=== PATIENT | female | born 1960 | race Two or more races ===

== ENCOUNTER 2021-12-15 00:03 | Inpatient (IN) | payer OTHER ==
[~2021-12-15] VITALS: Ht 165.1 cm; Wt 54.4 kg
[2021-12-15] MEDS ORDERED: OMEPRAZOLE MAGN20 MG (00:17)
[2021-12-15] MEDS ORDERED: ATORVASTATIN CA10 MG (00:17)
[2021-12-15] MEDS ORDERED: LANTUS SOL100 UNIT/1 (00:17)
[2021-12-15] MEDS ORDERED: CARVEDILOL3.125 M1 (00:17)
[2021-12-15] MEDS ORDERED: COZAAR25 MG (00:18)
[2021-12-15] MEDS ORDERED: ECOTRIN81 MG (00:18)
[2021-12-15] MEDS ORDERED: ROCALTROL0.25 MCG (00:18)
[2021-12-15] MEDS ORDERED: [UNRECOGNIZED DRUG - OTHER] (00:18)
--- NOTE | 2021-12-15 00:20 | NUR ---
PTE ALERTA Y ORIENTADA X 3 ESFERAS EN COMPANIA DE FAMILIAR,RECIBIDA EN SILLON DE KARINE REFIERE DOLOR ABDOMINAL,NAUSEAS Y DIBILIDAD DESDE EL J[place] DE COMER TYLER PELAEZ,REFIERE HACE 7 ANOS NO COMIA TYLER RODRIGUEZ.
--- NOTE | 2021-12-15 01:22 | NUR ---
SE EDCUA A PTE SOBRE TX MEDICO ESTA REFIERE ENTENDER. SE RANDAL MUESTRAS DE LABORATORIO UTILZIANDO MEDIDAS ASEPTICAS. SE COLOCA H/L A PTE Y SE ADMINISTRAN MEDICAMENTOS LOS CUALES TOLERA.
--- NOTE | 2021-12-15 02:26 | NUR ---
PTE REHUSA INSULINA IV, SE MARICARMEN Bernard MD.
--- NOTE | 2021-12-15 07:13 | NUR ---
SE RECIBE PTE ALERTA Y ORIENTADA X3 EN CAMA BAJA CON BARANDAS ELEVADAS POR SEGURIDAD. PTE CON BUEN PATRON RESPIRATORIO, CANALIZADA EN PERIFERAL RT CON ANGIO #22 PATENTE. AREA DE VENOPUNCION LILIAN DE EDEMA Y ERITEMA. RECIBIENDO 0.9 NSS BAJANDO 175ML/HR. PEND MUESTRA DE UA Y CONS. CON DR. GERARDO CORTÉS. SE MANTIENE BAJO OBSERVACION POR CAMBIOS SIGNIFICATIVOS
== END 2021-12-20 15:32 | disposition home or self-care (01) | DRG 640 ==
LOC: ER 00:03 → MEDI 14:45
PROVIDERS: ADMIT Internal Medicine; ATTEND Internal Medicine
DX: E86.0 Dehydration (principal); K85.10 Biliary acute pancreatitis without necrosis or infection; N17.8 Other acute kidney failure; N39.0 Urinary tract infection, site not specified; K29.00 Acute gastritis without bleeding; R31.29 Other microscopic hematuria; E11.65 Type 2 diabetes mellitus with hyperglycemia; Z79.4 Long term (current) use of insulin; I12.9 Hypertensive chronic kidney disease with stage 1 through stage 4 chronic kidney disease, or unspecified chronic kidney disease; E11.22 Type 2 diabetes mellitus with diabetic chronic kidney disease; N18.9 Chronic kidney disease, unspecified; Z20.822 Contact with and (suspected) exposure to COVID-19

== ENCOUNTER 2022-12-13 19:26 | Emergency (ER) | payer OTHER ==
[~2022-12-13] VITALS: Ht 166.4 cm; Wt 51.7 kg
[~2022-12-13 19:26] MED LIST: ATORVASTATIN CA10 MG; CARVEDILOL3.125 M1; COZAAR25 MG; ECOTRIN81 MG; LANTUS SOL100 UNIT/1; OMEPRAZOLE MAGN20 MG; ROCALTROL0.25 MCG; [UNRECOGNIZED DRUG - OTHER]
[2022-12-13] MEDS ORDERED: COZAAR50 MG PO (20:34)
== END 2022-12-13 23:05 | disposition home or self-care (01) ==
LOC: ER 19:26
DX: S82.855A Nondisplaced trimalleolar fracture of left lower leg, initial encounter for closed fracture (principal); W18.39XA Other fall on same level, initial encounter; Y93.89 Activity, other specified; Y92.89 Other specified places as the place of occurrence of the external cause; Y99.9 Unspecified external cause status; E11.9 Type 2 diabetes mellitus without complications; Z79.4 Long term (current) use of insulin; N28.9 Disorder of kidney and ureter, unspecified; Z88.8 Allergy status to other drugs, medicaments and biological substances

== ENCOUNTER 2022-12-23 14:10 | Outpatient (CLI) | payer OTHER ==
[~2022-12-23 14:10] MED LIST changes: +COZAAR50 MG PO
== END 2022-12-23 14:24 | disposition home or self-care (01) ==
LOC: RAD 14:10
PROVIDERS: ATTEND Orthopaedic Surgery
DX: M25.572 Pain in left ankle and joints of left foot (principal)

== ENCOUNTER 2022-12-29 14:31 | Outpatient (CLI) | payer OTHER | END 2022-12-29 14:40 | disposition home or self-care (01) | LOC: RAD 14:31 | PROVIDERS: ATTEND Orthopaedic Surgery | DX: M25.572 Pain in left ankle and joints of left foot (principal) ==

== ENCOUNTER 2023-01-07 12:49 | Outpatient (CLI) | payer OTHER | END 2023-01-07 12:51 | disposition home or self-care (01) | LOC: NUCLEAR 12:49 | PROVIDERS: ATTEND Orthopaedic Surgery | DX: M81.0 Age-related osteoporosis without current pathological fracture (principal) ==

== ENCOUNTER 2023-03-02 09:35 | Outpatient (CLI) | payer OTHER ==
[2023-03-02 10:53] LABS: ALBUMIN 2.9 gm/dL (3.4-5.0); BILIRUBIN TOTAL 0.28 mg/dL (0.3-1.2); CALCIUM 8.3 mg/dL (8.5-10.1); CREATININE SERUM 3.31 mg/dL (0.55-1.02); GFR 14.16; GLOBULINA 4.3 G/DL (2.4-3.5); MAGNESIUM 2.7 mg/dL (1.8-2.4); PHOSPHOROUS 3.8 mg/dL (2.5-4.9); TOTAL PROTEIN 7.2 gm/dL (6.4-8.2)
[2023-03-02 11:06] LABS: POTASSIUM 5.93 mEq/L (3.5-5.1)
== END 2023-03-02 09:37 | disposition home or self-care (01) ==
LOC: LAB 09:35
PROVIDERS: ATTEND Orthopaedic Surgery
DX: E55.9 Vitamin D deficiency, unspecified (principal); M85.9 Disorder of bone density and structure, unspecified; E56.1 Deficiency of vitamin K; E21.3 Hyperparathyroidism, unspecified; E88.89 Other specified metabolic disorders; M81.8 Other osteoporosis without current pathological fracture; Z88.5 Allergy status to narcotic agent

== ENCOUNTER 2023-03-02 10:13 | Outpatient (CLI) | payer OTHER | END 2023-03-02 10:17 | disposition home or self-care (01) | LOC: RAD 10:13 | PROVIDERS: ATTEND Orthopaedic Surgery | DX: S82.842D Displaced bimalleolar fracture of left lower leg, subsequent encounter for closed fracture with routine healing (principal); Z88.5 Allergy status to narcotic agent ==

== ENCOUNTER 2023-05-12 07:11 | Outpatient (CLI) | payer OTHER | END 2023-05-12 07:12 | disposition home or self-care (01) | LOC: NUCLEAR 07:11 | PROVIDERS: ATTEND Orthopaedic Surgery | DX: E21.0 Primary hyperparathyroidism (principal) ==

== ENCOUNTER 2023-05-12 08:39 | Outpatient (CLI) | payer OTHER | END 2023-05-12 08:45 | disposition home or self-care (01) | LOC: RAD 08:39 | PROVIDERS: ATTEND Orthopaedic Surgery | DX: S82.855D Nondisplaced trimalleolar fracture of left lower leg, subsequent encounter for closed fracture with routine healing (principal) ==

== ENCOUNTER 2023-06-21 10:34 | Outpatient (CLI) | payer OTHER | END 2023-06-21 10:36 | disposition home or self-care (01) | LOC: SONOGRAMA 10:34 | PROVIDERS: ATTEND Pathology Anatomic Pathology & Clinical Pathology | DX: D34 Benign neoplasm of thyroid gland (principal); E07.89 Other specified disorders of thyroid; E04.2 Nontoxic multinodular goiter ==

== ENCOUNTER 2023-06-24 10:03 | Outpatient (CLI) | payer OTHER | END 2023-06-24 10:06 | disposition home or self-care (01) | LOC: TOM 10:03 | PROVIDERS: ATTEND Orthopaedic Surgery | DX: S82.85 Trimalleolar fracture of lower leg (principal) ==